=== PATIENT | male | born 1990 | race African-American/Black ===

== ENCOUNTER 2016-06-29 07:55 | Emergency (ER) | payer OTHER ==
[2016-06-29] MEDS ORDERED: METOCLOPRAMIDE 10 MG/2 ML VIAL ONE (09:20)
[2016-06-29] MEDS ORDERED: KETOROLAC 30 MG/ML VIAL ONE (09:21)
[2016-06-29] MEDS ORDERED: DIPHENHYDRAMINE 50 MG/ML VIAL ONE (09:21)
[2016-06-29] MEDS ORDERED: SODIUM CHLORIDE 0.9% 1,000 ML ONE (09:21)
== END 2016-06-29 11:05 | disposition home or self-care (01) ==
LOC: ER 07:55
DX: G44.211 Episodic tension-type headache, intractable (principal)
CPT/HCPCS: 87804; 87880; 96361; 96374; 96375; 99283; J1885